=== PATIENT | male | born 2000 | race Caucasian/White ===

== ENCOUNTER 2023-10-16 01:24 | Emergency (ER) | payer MEDICAID ==
[~2023-10-16] VITALS: Ht 182.9 cm; Wt 90.0 kg
[2023-10-16 01:29] VITALS: O2SAT 100
[2023-10-16 01:56] LABS: CLARITY URINE CLEAR (CLEAR); COLOR URINE YELLOW (YELLOW); GLUCOSE URINE NEGATIVE (NEGATIVE); KETONES URINE NEGATIVE (NEGATIVE); LEUKOCYTE ESTERASE URINE NEGATIVE (NEGATIVE); NITRITE URINE NEGATIVE (NEGATIVE); OCCULT BLOOD URINE NEGATIVE (NEGATIVE); PH URINE 5.5 (4.5-8.0); PROTEIN URINE NEGATIVE (NEGATIVE); SPECIFIC GRAVITY URINE 1.008 (1.005-1.030); UROBILINOGEN URINE 0.2 E.U./dL (0.2-1.0)
[2023-10-16 02:12] LABS: *AMPHETAMINES SCREEN URINE NEGATIVE (NEGATIVE); *BARBITURATES SCREEN URINE NEGATIVE (NEGATIVE); *BENZODIAZEPINES SCREEN URINE NEGATIVE (NEGATIVE); *COCAINE SCREEN URINE NEGATIVE (NEGATIVE); CANNABINOID URINE SCREEN PRESUMPTIVE POSITIVE (NEGATIVE); ECSTASY MDMA SCREEN URINE NEGATIVE (NEGATIVE); METHADONE URINE SCREEN NEGATIVE (NEGATIVE); OPIATES URINE SCREEN NEGATIVE (NEGATIVE); PHENCYCLIDINE URINE SCREEN NEGATIVE (NEGATIVE)
[2023-10-16 02:37] LABS: BASOPHILS % 0.7 % (0.0-2.0); EOSINOPHILS % 0.1 % (0.0-5.0); HEMATOCRIT. 44.1 % (42.0-52.0); LYMPHOCYTES % 22.5 % (20.0-50.0); MEAN CORPUSCULAR HEMOGLOBIN 31.9 pg (28.0-32.0); MONOCYTES % 4.8 % (2.0-8.0); NEUTROPHILS % 71.9 % (40.0-76.0); PLATELET 200 x1000/uL (130-400); RED CELL DISTRIBUTION WIDTH 13.2 % (11.6-14.6); WHITE BLOOD COUNT 6.7 x1000/uL (4.5-11.0)
[2023-10-16 02:41] LABS: CARBON DIOXIDE 28 mEq/L (21-32); CHLORIDE 107 mEq/L (98-107); POTASSIUM 4.2 mEq/L (3.5-5.1); SODIUM 141 mEq/L (136-145)
[2023-10-16 02:42] LABS: CALCIUM 9.5 mg/dL (8.7-10.4)
[2023-10-16 02:47] LABS: ETHANOL BLOOD 146 mg/dL (<10); GLUCOSE 107 mg/dL (70-105); UREA NITROGEN BLOOD 7 mg/dL (9-23)
[2023-10-16 02:48] LABS: ACETAMINOPHEN < 2 ug/mL (10-30)
[2023-10-16] MEDS: LORAZEPAM 1MG TABLET PO ONE (03:15)
[2023-10-16 06:07] VITALS: BP 128/84; PULSE 92; RESP 16; TEMP 36.72516; O2SAT 100
== END 2023-10-16 15:18 | disposition home or self-care (01) ==
LOC: ER 01:24
DX: R45.851 Suicidal ideations (principal); F17.200 Nicotine dependence, unspecified, uncomplicated; F12.10 Cannabis abuse, uncomplicated; I49.9 Cardiac arrhythmia, unspecified
CPT/HCPCS: 36415; 80048; 80305; 80307; 80320; 80329; 81003; 85025; 93005; 99285; G0480